=== PATIENT | male | born 1955 | race Caucasian/White ===

== ENCOUNTER 2023-10-23 08:45 | Day surgery (SDC) | payer OTHER, SELFPAY ==
[2023-10-03 08:52] VITALS: BMI 27.3
[2023-10-10 11:44] VITALS: BMI 27.0
[2023-10-23 09:37] VITALS: BP 135/96; PULSE 86; RESP 16; TEMP 36.9; O2SAT 98
[2023-10-23] MEDS: LACTATED RINGERS 1,000 ML 150 ML IV CONT (09:40)
--- NOTE | 2023-10-23 10:02 | PM.HPGS ---
History of Present Illness History of Present Illness Consent: Risks, benefits, and alternatives have been discussed and questions answered. Patient agrees to proceed with procedure. Chief complaint: Neoplasm Screening Narrative: Ravi Michael is a 68 year old male presents for screening colonoscopy. Patient's current weight appetite and bowel movements are normal. Patient denies abdominal pain. Has had no bleeding. Family history is noncontributory. Patient does have a prior history of colitis initially felt to be ulcerative colitis but this is resolved on follow-up exams and likely was secondary to an infection. Patient currently on no medications for this. 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 Review of Systems Review of Systems: All systems reviewed & are unremarkable except as noted in HPI and below PMFSH Social History Social History Years smoked: 15 Smoking status: Former smoker Tobacco type: cigarettes Alcohol intake: current Drinks per week: 6 Substance use: never Substance use type: does not use Living arrangements: with family Meds Home Medications and Allergies Home Medications Medication Instructions Recorded Confirmed Type citalopram 40 mg tablet 40 mg PO DAILY 12/16/18 10/23/23 History quetiapine 300 mg tablet 300 mg PO HS 12/16/18 10/23/23 History Adults Multivitamin 1 tab-cap PO DAILY 10/10/23 10/23/23 History aspirin 81 mg tablet 81 mg PO DAILY 10/10/23 10/23/23 History metoprolol succinate 25 mg 25 mg PO DAILY 10/10/23 10/23/23 History tablet,extended release 24 hr valsartan 160 1 tablet PO DAILY 10/10/23 10/23/23 History mg-hydrochlorothiazide 12.5 mg tablet Allergies Allergy/AdvReac Type Severity Reaction Status Date / Time No Known Allergies Allergy Verified 10/23/23 09:35 Vital Signs Vital Signs - 24 hr 10/23/23 09:37 Temperature 98.4 F Pulse Rate 86 Respiratory Rate 16 Blood Pressure 135/96 H Pulse Oximetry 98 Oxygen Delivery Room Air Exam Narrative: Physical exam reveals patient to be alert. Signs stable. HEENT is unremarkable. Patient is anicteric. Lungs are clear to auscultation and to percussion. Heart is without murmur extra sounds. Abdomen bowel sounds are present soft nontender with no organomegaly. Digital external rectal exam normal. Assessment and Plan Assessment and plan (1) Screen for colon cancer: Code(s): Z12.11 - Encounter for screening for malignant neoplasm of colon Status: Acute Assessment and Plan: Patient presents today for neoplasia screening colonoscopy. He appears to be at average risk for colon polyps.
--- NOTE | 2023-10-23 10:11 | P.PNAN_ITS ---
Anes - Initial Pre Proc Eval Procedure: Operation Date: 10/23/23 11:00 Proposed Procedures p Screening Colonoscopy - Ace Gonzalez MD Date/Time: 10/23/23 10:11 Surgeon: Ace Gonzalez MD Pre Op Diagnosis: Neoplasm Screening Patient Data Age: 68 Gender: M Height: 1.75 m Weight: 80 kg Last Vital Signs Temp 98.4 F 10/23/23 09:37 Pulse 86 10/23/23 09:37 Resp 16 10/23/23 09:37 BP 135/96 H 10/23/23 09:37 Pulse Ox 98 10/23/23 09:37 O2 Del Method Room Air 10/23/23 09:37 Allergies Allergy/AdvReac Type Severity Reaction Status Date / Time No Known Allergies Allergy Verified 10/23/23 09:35 Home Medications Medication Instructions Recorded Confirmed Type citalopram 40 mg tablet 40 mg PO DAILY 12/16/18 10/23/23 History quetiapine 300 mg tablet 300 mg PO HS 12/16/18 10/23/23 History Adults Multivitamin 1 tab-cap PO DAILY 10/10/23 10/23/23 History aspirin 81 mg tablet 81 mg PO DAILY 10/10/23 10/23/23 History metoprolol succinate 25 mg 25 mg PO DAILY 10/10/23 10/23/23 History tablet,extended release 24 hr valsartan 160 1 tablet PO DAILY 10/10/23 10/23/23 History mg-hydrochlorothiazide 12.5 mg tablet Patient hx anesthesia problems: none Family hx anesthesia problems: none Results Review: All pre-operative results and documents have been reviewed as part of the pre-operative evaluation. [facility] Past Medical History Medical History Bipolar 1 disorder Hypertension Over weight Overweight (BMI 25.0-29.9) Social History Social History Years smoked: 15 Smoking status: Former smoker Tobacco type: cigarettes Alcohol intake: current Drinks per week: 6 Substance use: never Substance use type: does not use Living arrangements: with family Anes - Eval Final PreProcedure Day of Procedure 10/23/23 10:11 Patient weight: overweight Heart: regular rate and rhythm Lungs: clear to auscultation Airway: Mallampati scale class III Last oral intake: >/= 8 hours ASA classification: II Emergent: no Anesthetic plan: proceed Anesthesia type and monitoring: general GIVS Results Review: All pre-operative results and documents have been reviewed as part of the pre- operative evaluation. Informed Consent: The patient's anesthetic plan and its attendant risks and benefits were discussed with the patient/family/POA. Questions were solicited and answers provided to the satisfaction of the patient/family/POA.
[2023-10-23 10:37] VITALS: BP 90/76; PULSE 75; RESP 12; O2SAT 95
--- NOTE | 2023-10-23 10:46 | WPDANESPN ---
Anes - Prog Note Post-Op Date/Time: 10/23/23 10:46 Cardiovascular status: normal Respiratory status: normal Airway patency: baseline Mental status: baseline Post-Op hydration status: normal Vital Signs: Last Vital Signs Temp 36.9 C 10/23/23 09:37 Pulse 86 10/23/23 09:37 Resp 16 10/23/23 09:37 BP 135/96 H 10/23/23 09:37 Pulse Ox 98 10/23/23 09:37 O2 Del Method Room Air 10/23/23 09:37 Pain Score (VAS): 0/10 I/O: Intake & Output 10/22/23 10/23/23 10/23/23 23:59 07:59 15:59 Intake Total 300 Balance 300 Patient Feedback: Patient satisfied with anesthetic care.
[2023-10-23 10:47] VITALS: BP 104/83; PULSE 78; RESP 16; O2SAT 97
[2023-10-23 10:57] VITALS: BP 122/86; PULSE 79; RESP 18; O2SAT 99
== END 2023-10-23 11:04 | disposition home or self-care (01) ==
PROVIDERS: PCP Family Medicine; Visit Provider Internal Medicine Gastroenterology
PROC: 0DJD8ZZ Inspection of Lower Intestinal Tract, Via Natural or Artificial Opening Endoscopic (ICD-10-PCS; CPT 45378; principal; 2023-10-23 11:00)
DX: Z12.11 Encounter for screening for malignant neoplasm of colon (principal); K57.30 Diverticulosis of large intestine without perforation or abscess without bleeding
CPT/HCPCS: 45378